=== PATIENT | male | born 1990 | race Caucasian/White ===

== ENCOUNTER 2018-12-16 11:34 | Inpatient (IN) ==
[2018-12-16] MEDS ORDERED: Amiodarone Premix 150 MG/100 ML BAG IVPB ONE (11:39)
[2018-12-16] MEDS ORDERED: Amiodarone Premix 360 MG/200 ML BAG IVC ONE (11:39)
[2018-12-16] MEDS ORDERED: Aspirin 81 MG TAB.CHEW ONE (11:40)
[2018-12-16] MEDS ORDERED: *HR* Ticagrelor 90 MG TABLET ONE (11:40)
[2018-12-16] MEDS ORDERED: *HR* Heparin 5,000 UNIT/ML VIAL ONE (11:40)
[2018-12-16] MEDS ORDERED: 0.9 % Sodium Chloride 1,000 ML ONE ×2 (11:40→11:44)
[2018-12-16] MEDS ORDERED: *HR* Ticagrelor 90 MG TABLET PO ONE (11:42)
[2018-12-16] MEDS ORDERED: *HR* Heparin 5,000 UNIT/ML VIAL IVP ONE (11:42)
[2018-12-16] MEDS ORDERED: *HR* Heparin 5,000 UNIT/ML VIAL IVP PRN ×2 (11:42)
[2018-12-16] MEDS ORDERED: Heparin 1,000 UNITS/500 mL 500 ML ONE (11:44)
[2018-12-16] MEDS ORDERED: ISOVUE-370 200 ML INFUS..BTL ONE (11:44)
[2018-12-16] MEDS ORDERED: Tirofiban 12.5 MG/250ML 12.5 MG/250 ML BAG ONE (11:44)
[2018-12-16] MEDS ORDERED: *HR* Midazolam HCl 2 MG/2 ML VIAL ONE (11:44)
[2018-12-16] MEDS ORDERED: *HR* FentaNYL (PF) 100 MCG/2 ML VIAL ONE (11:44)
[2018-12-16] MEDS ORDERED: *HR* Heparin 10,000 UNIT/10 ML VIAL ONE (11:44)
[2018-12-16] MEDS ORDERED: Nitroglycerin 1,000 MCG/10 ML VIAL IV ONE (11:44)
[2018-12-16 11:58] LABS: Basophils # 0.1 K/mcL (0.0-0.2); Basophils % 0.7 %; Eosinophils # 0.4 K/mcL (0.0-0.6); Eosinophils % 2.2 %; Hematocrit 50.8 % (37.5-50.1); Hemoglobin 17.6 g/dL (12.9-16.9); Immature Granulocytes % 0.9 % (0-4); Lymphocytes # 7.3 K/mcL (0.6-4.6); Lymphocytes % 40.1 %; Mean Corpuscular HGB Conc 34.6 g/dL (31.6-35.5); Mean Corpuscular Hemoglobin 29.6 pg (28.0-33.3); Mean Corpuscular Volume 85.4 fL (83.0-100.0); Mean Platelet Volume 10.2 fL (9.4-12.4); Monocytes # 1.5 K/mcL (0.0-1.3); Monocytes % 8.3 %; Platelet Count 418 K/mcL (140-400); Red Blood Count 5.95 M/mcL (4.19-5.50); Red Cell Distribution Width 13.3 % (11.5-14.5); Segmented Neutrophils % 47.8 %
[2018-12-16 12:00] LABS: Neutrophils # 8.7 K/mcL (1.6-8.9); White Blood Count 18.1 K/mcL (4.3-11.1)
[2018-12-16 12:07] LABS: INR 1.1
[2018-12-16 12:09] LABS: Activated Partial Thrombo Time 24.4 Seconds (26.0-36.0)
[2018-12-16 12:20] LABS: Alanine Aminotransferase 62 Units/L (7-52); Albumin 4.4 g/dL (3.5-5.7); Albumin/Globulin Ratio 1.5 (1.1-2.2); Alkaline Phosphatase 33 Units/L (34-104); Aspartate Amino Transferase 37 Units/L (13-39); BUN/Creatinine Ratio 8 (6-26); Bilirubin,Total 0.6 mg/dL (0.3-1.0); Blood Urea Nitrogen 8 mg/dL (6-20); Calcium 9.1 mg/dL (8.6-10.3); Carbon Dioxide 19 mEq/L (23-29); Chloride 102 mEq/L (98-107); Glucose 151 mg/dL (70-105); Magnesium 2.3 mg/dL (1.6-2.6); Osmolality,Calculated 283 (280-300); Potassium 2.7 mEq/L (3.5-5.1); Sodium 136 mEq/L (136-145); Total Protein 7.4 g/dL (6.4-8.9); Troponin I 0.08 ng/mL (< 0.04); eGFR For African Americans > 60 (> 60); eGFR For Non-African Americans > 60 (> 60)
[2018-12-16] MEDS ORDERED: Naloxone 0.4 MG/ML INJ IVP PRN (12:24)
[2018-12-16] MEDS ORDERED: *HR* Amiodarone 150 MG/3 ML VIAL IVPB ONE (12:24)
[2018-12-16] MEDS ORDERED: *HR* Amiodarone Premix 360 MG/200 ML BAG IVC ONE (12:24)
[2018-12-16] MEDS ORDERED: Potassium Chloride 40 MEQ, Lidocaine 1% 2 ML in 0.9 % Sodium Chloride 500 ML IVPB ONE (12:26)
[2018-12-16 12:30] LABS: Platelet Estimate Normal (Normal); Reactive Lymphocytes Present (Not Present)
[2018-12-16] MEDS ORDERED: Perflutren Lipid Microsphere 1.3 ML in 0.9 % Sodium Chloride 8.7 ML IVP ONE (14:33)
[2018-12-16] MEDS ORDERED: Perflutren Lipid Microsphere 2 ML VIAL ONE (14:35)
[2018-12-16] MEDS: Heparin 25,000 UNIT/250 ML D5W 25,000 UNIT/250 ML IV.SOLN IVC SCH (16:14)
[2018-12-16] MEDS: *HR* Ticagrelor 90 MG TABLET PO SCH (19:47)
[2018-12-16 20:28] LABS: BUN/Creatinine Ratio 7 (6-26); Blood Urea Nitrogen 6 mg/dL (6-20); Calcium 8.8 mg/dL (8.6-10.3); Carbon Dioxide 26 mEq/L (23-29); Chloride 103 mEq/L (98-107); Glucose 116 mg/dL (70-105); Osmolality,Calculated 281 (280-300); Potassium 3.3 mEq/L (3.5-5.1); Sodium 136 mEq/L (136-145); eGFR For African Americans > 60 (> 60); eGFR For Non-African Americans > 60 (> 60)
[2018-12-17 04:09] LABS: Basophils # 0.1 K/mcL (0.0-0.2); Basophils % 0.3 %; Eosinophils # 0.1 K/mcL (0.0-0.6); Eosinophils % 0.7 %; Hematocrit 48.7 % (37.5-50.1); Hemoglobin 16.8 g/dL (12.9-16.9); Immature Granulocytes % 0.6 % (0-4); Lymphocytes # 2.5 K/mcL (0.6-4.6); Mean Corpuscular HGB Conc 34.5 g/dL (31.6-35.5); Mean Corpuscular Hemoglobin 28.9 pg (28.0-33.3); Mean Corpuscular Volume 83.8 fL (83.0-100.0); Mean Platelet Volume 9.8 fL (9.4-12.4); Monocytes # 1.4 K/mcL (0.0-1.3); Monocytes % 7.5 %; Neutrophils # 13.9 K/mcL (1.6-8.9); Platelet Count 373 K/mcL (140-400); Red Blood Count 5.81 M/mcL (4.19-5.50); Red Cell Distribution Width 13.4 % (11.5-14.5); Segmented Neutrophils % 76.9 %
[2018-12-17 04:21] LABS: BUN/Creatinine Ratio 7 (6-26); Blood Urea Nitrogen 4 mg/dL (6-20); Calcium 8.9 mg/dL (8.6-10.3); Carbon Dioxide 22 mEq/L (23-29); Chloride 103 mEq/L (98-107); Glucose 86 mg/dL (70-105); Osmolality,Calculated 278 (280-300); Potassium 3.4 mEq/L (3.5-5.1); Sodium 136 mEq/L (136-145); eGFR For African Americans > 60 (> 60); eGFR For Non-African Americans > 60 (> 60)
[2018-12-17] MEDS ORDERED: Sucralfate 1 GM TABLET PO SCH (08:09)
[2018-12-17] MEDS: Heparin 25,000 UNIT/250 ML D5W 25,000 UNIT/250 ML IV.SOLN IVC SCH (08:40)
[2018-12-17] MEDS: *HR* Ticagrelor 90 MG TABLET PO SCH ×2 (08:51→21:46)
[2018-12-17] MEDS ORDERED: Aspirin 81 MG TAB.CHEW PO SCH (09:00)
[2018-12-17] MEDS ORDERED: Naloxone 0.4 MG/ML INJ IVP PRN (10:29)
[2018-12-17] MEDS ORDERED: *HR* Heparin 5,000 UNIT/ML VIAL IVP PRN ×2 (10:29)
[2018-12-17] MEDS ORDERED: Heparin 25,000 UNIT/250 ML D5W 25,000 UNIT/250 ML IV.SOLN IVC SCH (10:29)
[2018-12-17] MEDS: Sucralfate 1 GM TABLET PO SCH ×3 (11:21→21:46)
[2018-12-18 07:41] VITALS: BP 114/68
[2018-12-18] MEDS: Sucralfate 1 GM TABLET PO SCH ×2 (08:07→12:04)
[2018-12-18] MEDS: *HR* Ticagrelor 90 MG TABLET PO SCH (08:08)
[2018-12-18] MEDS ORDERED: Aspirin 81 MG TAB.CHEW PO SCH (09:00)
[2018-12-18] MEDS ORDERED: FLU Vac QV 19-20 (6Month+)/PF 0.5 ML SYRINGE IM ONE (09:18)
== END 2018-12-18 12:25 | disposition home or self-care (01) | DRG 270 ==
LOC: EMEROOARM 11:34 → ICNU 11:49 → 2NNU 12-17 11:49
PROVIDERS: ADMIT Internal Medicine Cardiovascular Disease; ATTEND Internal Medicine Cardiovascular Disease